=== PATIENT | female | born 1935 | race Caucasian/White ===

== ENCOUNTER 2017-12-30 20:25 | Emergency (ER) | payer MEDICARE, BC ==
[2017-12-30] MEDS ORDERED: Sodium Chloride 0.9% 5 ML Syringe FLUSH PRN (20:36)
[2017-12-30] MEDS: Ondansetron 4 MG/2 ML SDV IVPUSH ONE (20:40)
[2017-12-30] MEDS: HYDROmorphone 1 MG/ML Syringe IVPUSH ONE ×2 (20:44→20:56)
--- NOTE | 2017-12-30 20:48 | EDM.PDOC ---
ED HPI GENERAL MEDICAL PROBLEM - General Chief Complaint: Upper Extremity Injury/Pain Stated Complaint: LEFT SHOULDER INJURY Time Seen by Provider: 12/30/17 20:27 Source of Information: Reports: Patient History Limitations: Reports: No Limitations - History of Present Illness INITIAL COMMENTS - FREE TEXT/NARRATIVE: Patient is an 82-year-old female who presents to the emergency Department this evening via EMS secondary to fall. States that while she was in a standing position she was moving a ladder and fell forward. Unsure if left arm was outstretched or to her side. Patient denies head injury, loss of consciousness , headache, chest pain, shortness of breath, hip or leg pain, or any other discomfort. Onset: Today Onset Date: 12/30/17 Duration: Minutes: Location: Reports: Upper Extremity, Left Quality: Reports: Ache, Sharp Severity: Moderate Improves with: Reports: None Worsens with: Reports: Movement Context: Reports: Trauma Associated Symptoms: Reports: No Other Symptoms. Denies: Chest Pain, Headaches , Nausea/Vomiting, Shortness of Breath - Related Data Allergies Allergy/AdvReac Type Severity Reaction Status Date / Time pregabalin [From Lyrica] Allergy Severe ANGIOEDEMA Verified 12/30/17 20:31 gabapentin Allergy Unknown Facial Verified 12/30/17 20:31 Swelling, HEART SKIPS erythromycin base AdvReac Diarrhea Verified 12/30/17 20:31 [Erythromycin Base] Home Meds: Home Meds Acetaminophen [Tylenol] 650 mg PO Q4H PRN 04/11/13 [History] Aspirin [Halfprin] 81 mg PO DAILY 04/11/13 [History] Calcium Carbonate/Vitamin D3 [Calcium 600 + Vit D Tablet] 1 tab PO DAILY [History] Cholecalciferol (Vitamin D3) [Vitamin D3] 4,000 unit PO 04/11/13 [History] Multivitamin [Multi-Vitamin Daily] 1 tab PO DAILY 04/11/13 [History] Nutritional Supplement Caps 2 cap PO DAILY 04/11/13 [History] Nutritional Supplements 2 tab PO BID 04/11/13 [History] Triamcinolone Acetonide [Triamcinolone Acetonide 0.1% Oint] TOP BID 04/11/13 [ History] traMADol [Ultram] 50 mg PO TID PRN 04/11/13 [History] Sulfamethoxazole/Trimethoprim [Sulfamethoxazole-Tmp Ss Tablet] 1 tab PO Q12H [History] Review of Systems - Review of Systems Review Of Systems: ROS reveals no pertinent complaints other than HPI. Constitutional: Reports: No Symptoms Eyes: Reports: No Symptoms Ears: Reports: No Symptoms Nose: Reports: No Symptoms Mouth/Throat: Reports: No Symptoms Respiratory: Reports: No Symptoms Cardiovascular: Reports: No Symptoms GI/Abdominal: Reports: No Symptoms Genitourinary: Reports: No Symptoms Musculoskeletal: Reports: Shoulder Pain (Left) Skin: Reports: No Symptoms Neurological: Reports: No Symptoms Psychiatric: Reports: No Symptoms ED EXAM, GENERAL - Physical Exam Exam: See Below Exam Limited By: No Limitations General Appearance: Alert, WD/WN, Mild Distress Eye Exam: Bilateral Eye: Normal Inspection Nose: Normal Inspection, No Blood Throat/Mouth: Normal Inspection, Normal Oropharynx, No Airway Compromise Head: Atraumatic, Normocephalic Neck: Normal Inspection, Supple, Non-Tender, Full Range of Motion Respiratory/Chest: No Respiratory Distress, Lungs Clear, Normal Breath Sounds, No Accessory Muscle Use, Chest Non-Tender Cardiovascular: Regular Rate, Rhythm, No Murmur Peripheral Pulses: 2+: Brachial (L), Brachial (R), Radial (L), Radial (R) GI/Abdominal: Normal Bowel Sounds, Soft, Non-Tender Back Exam: Normal Inspection, Full Range of Motion. No: CVA Tenderness (L), CVA Tenderness (R) Extremities: No Pedal Edema, Normal Capillary Refill, Other (Left shoulder obvious deformity. No neurovascular deficit of left upper extremity noted.) Neurological: Alert, Oriented, CN II-XII Intact, Normal Cognition, No Motor/ Sensory Deficits Psychiatric: Normal Affect, Normal Mood Skin Exam: Warm, Dry, Intact, Normal Color, No Rash Course - Orders/Labs/Meds Orders: Active Orders 24 hr Category Date Time Status Peripheral IV Care [RC] . DIRECTED Care 12/30/17 20:36 Ordered Shoulder Comp Lt [CR] Stat Exams 12/30/17 20:36 Ordered Sodium Chloride 0.9% [Syrex Flush] Med 12/30/17 20:36 Ordered 5 ml FLUSH Q8HR PRN Peripheral IV Insertion Adult [OM.PC] Routine Oth 12/30/17 20:36 Ordered Medication Orders Sodium Chloride (Syrex Flush) 5 ml FLUSH Q8HR PRN PRN Reason: Keep Vein Open Meds: Medications Generic Name Dose Route Start Last Admin Trade Name Freq PRN Reason Stop Dose Admin Sodium Chloride 5 ml 12/30/17 20:36 Syrex Flush FLUSH Q8HR PRN Keep Vein Open Discontinued Medications Generic Name Dose Route Start Last Admin Trade Name Freq PRN Reason Stop Dose Admin Hydromorphone HCl 0.5 mg 12/30/17 20:36 Dilaudid IVPUSH 12/30/17 20:37 ONETIME ONE Ondansetron HCl 4 mg 12/30/17 20:36 Zofran IVPUSH 12/30/17 20:37 ONETIME ONE - Radiology Interpretation Free Text/Narrative:: Left shoulder x-ray shows anterior dislocation without fracture - Re-Assessments/Exams Free Text/Narrative Re-Assessment/Exam: 12/30/17 21:23 Patient afebrile, nontoxic appearing, vital signs stable, pain controlled. Patient was placed in a left shoulder sling. No neuro or vascular deficit of the left upper extremity noted. Discussed case with Dr. Dickey from [facility], and he will accept patient for transfer. Patient was transferred via EMS ground ambulance Departure - Departure Time of Disposition: 21:25 Disposition: DC/Tfer to Acute Hospital 02 Condition: Fair Clinical Impression: Dislocation of shoulder, left, closed Qualifiers: Encounter type: initial encounter Qualified Code(s): S43.005A - Unspecified dislocation of left shoulder joint, initial encounter - Discharge Information Instructions: How to Use a Sling, [id number], Shoulder Dislocation Referrals: Amanda Loo, SENIOR BUSINESS DEVELOPMENT ANALYST [Primary Care Provider] - - My Orders Last 24 Hours: My Active Orders 12/30/17 20:36 Peripheral IV Care [RC] . DIRECTED Shoulder Comp Lt [CR] Stat Sodium Chloride 0.9% [Syrex Flush] 5 ml FLUSH Q8HR PRN Peripheral IV Insertion Adult [OM.PC] Routine - Assessment/Plan Last 24 Hours: My Active Orders 12/30/17 20:36 Peripheral IV Care [RC] . DIRECTED Shoulder Comp Lt [CR] Stat Sodium Chloride 0.9% [Syrex Flush] 5 ml FLUSH Q8HR PRN Peripheral IV Insertion Adult [OM.PC] Routine Assessment:: Left shoulder dislocation Plan: Transferred to [facility]
[2017-12-31 00:20] VITALS: BP 186/84
== END 2017-12-30 22:23 ==
LOC: KA.ED 20:25
DX: S43.005A Unspecified dislocation of left shoulder joint, initial encounter (principal); Z88.1 Allergy status to other antibiotic agents; Z88.8 Allergy status to other drugs, medicaments and biological substances; W19.XXXA Unspecified fall, initial encounter
CPT/HCPCS: 73030-LT; 73060-LT; 96374; 96375; 99283; 99285; J1170; J2405